=== PATIENT | male | born 1970 | race Native Hawaiian/Other Pacific Islander ===

== ENCOUNTER 2018-04-06 10:47 | Outpatient (CLI) | payer OTHER | END 2018-04-06 10:54 | disposition short-term general hospital (02) | LOC: AMB 10:47 | DX: R50.9 Fever, unspecified (principal); E86.0 Dehydration | CPT/HCPCS: A0425; A0429 ==

== ENCOUNTER 2018-04-06 10:55 | Emergency (ER) | payer OTHER ==
[~2018-04-06] VITALS: Ht 177.8 cm; Wt 80.7 kg
[2018-04-06 11:07] VITALS: TEMP 98.1
[2018-04-06 11:42] LABS: PLATELET COUNT 162 K/uL (142-355)
[2018-04-06 11:51] LABS: POTASSIUM 3.4 mmol/L (3.6-5.2)
[2018-04-06 13:15] VITALS: BP 110/78
== END 2018-04-06 13:15 | disposition home or self-care (01) ==
LOC: ED 10:55
DX: R50.9 Fever, unspecified (principal); J44.9 Chronic obstructive pulmonary disease, unspecified
CPT/HCPCS: 36415; 80053; 81000; 85027; 99283